=== PATIENT | female | born 2000 | race Caucasian/White ===

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

== ENCOUNTER 2022-03-11 12:38 | Emergency (ER) | payer BC ==
[~2022-03-11] VITALS: Ht 170.2 cm; Wt 111.4 kg
[~2022-03-11 12:38] MED LIST changes: +CRYSELLE 30 MCG1 TAB PO; +NORCO 325 MG-51 TAB PO; +PRIL40 PO; +PROZAC40 MG PO; +SEROQUEL50 MG PO
[2022-03-11 12:52] VITALS: BP 135/81; PULSE 88; TEMP 97.9
== END 2022-03-11 13:30 | disposition home or self-care (01) ==
LOC: COL.ER 12:38
DX: S06.0X0A Concussion without loss of consciousness, initial encounter (principal); W22.8XXA Striking against or struck by other objects, initial encounter; W18.40XA Slipping, tripping and stumbling without falling, unspecified, initial encounter